=== PATIENT | female | born 1985 | race Two or more races ===

== ENCOUNTER → 2019-10-13 | Outpatient (CLI) | payer OTHER ==
--- NOTE | 2019-10-13 14:50 | RADIOLOGY REPORT (SQ) ---
EXAM DESCRIPTION: U/S OB 14+ TRNABD 1GES W/O DOP COMPLETED DATE/TIME: 10/13/2019 1:47 pm REASON FOR STUDY: ANATOMY SCAN COMPARISON: None. TECHNIQUE: Static and Dynamic grayscale imaging performed of gravid uterus using transabdominal appr oac. Additional selected color Doppler and spectral images recorded. All stored on PACS. LIMITATIONS: None. FINDINGS: FETUSES SEEN:1 EGA: 20 weeks 1 day Calculated using BPD,FL,HC,AC documented on images. No discrepancy with clinical dates. JOEY: 02/29/2020 EFW: 329 grams PERCENTILE: Not calculated. LVP: 2.8 cm. PLACENTA: Posterior GRADE: I PRESENTATION: Cephalic. ANATOMY: HEART RATE: 137 beats per minute. FOUR CHAMBER HEART: Visualized. THREE VESSEL CORD: Yes. CORD INSERTION: Visualized. KIDNEYS AND BLADDER: Visualized. Appear normal. STOMACH: Visualized. Appears normal. SPINE: Normal as visualized. BRAIN AND LATERAL VENTRICLES: Visualized. Appear normal. OTHER: No other significant finding. MATERNAL ADNEXA: Right ovary is unremarkable. The left ovary was not seen. CERVICAL LENGTH: 4.6 cm. Closed. OTHER: No other significant finding. IMPRESSION: LIVING INTRAUTERINE . ESTIMATED GESTATIONAL AGE 20 weeks 1 day NO VISUALIZED ANOMALIES. Trimester of : Second trimester - 13 weeks 1 day to 27 weeks 6 days. TECHNICAL DOCUMENTATION: JOB ID: [id number] [employer]- All Rights Reserved Reading location - IP/workstation name: [email or web address]
== END ==
LOC: RAD 12:59
PROVIDERS: ATTEND Advanced Practice Midwife
DX: O09.512 Supervision of elderly primigravida, second trimester (principal); Z3A.20 20 weeks gestation of pregnancy
CPT/HCPCS: 76805